=== PATIENT | female | born 1985 | race Two or more races ===

== ENCOUNTER 2025-01-13 13:05 | Outpatient (AMB) | payer MEDICAID, SELFPAY ==
[2025-01-13 13:42] VITALS: BP 129/79; PULSE 71; RESP 16; TEMP 36.2; O2SAT 98; BMI 33.3
--- NOTE | 2025-01-13 13:42 | GYNCLNT_ITS ---
Vital Signs 01/13/25 13:42 Height 1.63 m Height Method Stated Weight 87.997 kg Weight Measurement Method Standing Scale BMI 33.3 BP 129/79 Blood Pressure Source Automatic Cuff Blood Pressure Location Left Upper Arm Position Sitting Respiration 16 Pulse 71 Pulse Source Monitor Temp 97.2 F Temp Source Oral Pulse Oximetry (%) 98 Oxygen Delivery Method Room Air Allergies/Home Meds Allergies & Medications Allergies No Known Allergies Allergy (Verified 01/13/25 13:43) Medication Reconciliation No Known Home Medications 01/13/25 [History Confirmed 01/13/25] Intake Visit Data Collection New Patient or Established: New Patient (never been to [facility]) Reason for Visit:: REF NEXPLANON REMOVAL Seen by Clinical Staff ONLY (RN/MA): No Internal Communications Writer Required: No Do You Feel Safe at Home: Yes Authorities Contacted: N/A PCP or OBGYN visit in last 3 months: Yes Hx Now: No Are you currently on any form of Control: No Last menstrual period: 01/04/25 Pain Present Currently: No Pain Scale Used: Ortega-Jesus/Numerical Pain scale:: 0 Smoking Status Smoking Status: Never smoker [employer] history [employer] History Menstrual regularity: regular Flow: normal Monthly: Yes How many days does period last: 5 Age at menarche: 11 Menopausal: No Currently sexually active: Yes Questionnaires Covid-19 Vaccine Questionnaire Has patient been vacinated for Covid-19 Have you been vacinated for Covid-19: No PHQ-9 PHQ-2 Over the last 2 weeks, how often have you been bothered by any of the following problems? 1. Little interest or pleasure in doing things: not at all 2. Feeling down, depressed, or hopeless: not at all Total score: 0 PHQ-9 3. Trouble falling or staying asleep, or sleeping too much: Not at all 4. Feeling tired or having little energy: Not at all 5. Poor appetite or overeating: Not at all 6. Feeling bad about yourself - or that you are a failure or have let yourself or your family down: Not at all 7. Trouble concentrating on things, such as reading the newspaper or watching television: Not at all 8. Moving or speaking so slowly that other people could have noticed? - Or the opposite - being so fidgety or restless that you have been moving around a lot more than usual: not at all 9. Thoughts that you would be better off or of hurting yourself in some way: Not at all Total score: 0 If you checked off any problems, how difficult have these problems made it for you to do your work, take care of things at home, or get along with other peopl e?: not difficult at all Source: Developed by Drs. Arnaldo Patino, Kristi Ross, Jaun Nina and colleagues, with an educational shona from [employer]. Depression screen completed yes Social History Living Situation History Marital Status: Single Lives With: Family Housing: House Tobacco History Smoking Status: Never smoker Second Hand Smoke Exposure: No Alcohol History Alcohol Intake: Never Domestic Abuse History Do You Feel Safe at Home: Yes History of Present Illness HPI Narrative 39-year-old 4 para 4 for Nexplanon removal patient had Nexplanon for 3 years. She has been happy with the method but she does not want to use any contraception at this time. Previous x 3. Denies any existence of chronic medical illness. Denies any EMERGENCY SERVICES PROFESSIONAL or vaginitis complaints today. And denies any social habits. Her last period January 04 and they are every month. Review of Systems Review of Systems Systems Reviewed: All systems reviewed, normal except as documented Exam General Limitations: no limitations General Appearance: alert, in no apparent distress, comfortable, cooperative, healthy appearing, well developed and well groomed Head Head exam: atraumatic, normocephalic and normal inspection Neck Neck exam: Present normal inspection, full ROM and trachea midline Chest Chest inspection: Present normal inspection and symmetric chest wall rise Resp Respiratory exam: Present normal lung sounds bilaterally Card Cardiovascular exam: Present regular rate, normal rhythm and normal heart sounds Abdominal Abdominal exam: Present soft and normal bowel sounds Psych Psychiatric exam: Present normal affect and normal mood Office Procedures [facility] LOC & Office Proc's Nursing/Assessment Patient Status: Initial/New Patient [facility] Clinic Nursing Assessment: Medication Reconciliation, Update PMH in EMR and Vital Signs OB Clinic Coordination of Care: Education Complex Pt/Fam, Consent,records obtained, informed consent, Lab and Imaging orders, Results/Orders obtained and Staff clarify orders New Patient Charge New Patient Point Assignment: [id number] New Patient Point Charge: SENIOR ACCOUNTING SPECIALIST Level 3 ([id number]) Assessment & Plan Diagnosis / Problem List (1) Nexplanon removal: Status: Acute Plan Consent per protocol. I discussed Nexplanon removal procedure with patient. She stated understanding. Denies allergies to lidocaine. Discussed wound care. Dry for 3 days. Advised patient to use condoms or contraception because return to fertility is quick. Note for work. Discussed danger signs and symptoms. Return as needed Control Implant/Removal Removal of Contraceptive Device Ambulatory Dept Location: OB Clinic Removal of Contraceptive Device: Yes Procedure Notes Pre-op diagnosis general: Nexplanon removal Consent obtained: yes-verbal and yes-written PATIENT FINANCIAL COORDINATOR: BC insert/removal Procedure Notes Consent obtained: yes-verbal and yes-written Pre-op diagnosis general: Nexplanon removal IUD Lot and Exp: Lot#: Expiration date: Procedure Notes:: Time out per protocol. Negative test. Betadine cleanse removal site. 2 cc lidocaine 1% injected at removal site. I used a scalpel to make 1/8 cm incision. Small bleb of blood. I then used a Magi to grab the end of the Nexplanon capsule. The capsule was removed intact. Band-Aid was placed over this site. And then a pressure dressing was applied bleeding stopped with pressure. Patient tolerated well
== END 2025-01-13 14:37 | disposition home or self-care (01) ==
LOC: HODSOBC 13:05
PROVIDERS: Supervising Provider Advanced Practice Midwife; Visit Provider Advanced Practice Midwife
DX: Z30.46 Encounter for surveillance of implantable subdermal contraceptive (principal)
CPT/HCPCS: 11983; 96372; 99203; J3490; G0463